=== PATIENT | male | born 1955 | race Caucasian/White ===

== ENCOUNTER 2019-03-10 11:53 | Emergency (ER) | payer OTHER ==
[~2019-03-10] VITALS: Ht 167.6 cm; Wt 59.0 kg
[2019-03-10] MEDS ORDERED: LEVOTHYROXINE100 MC1 PO (12:06)
[2019-03-10 12:49] VITALS: BP 125/81
[2019-03-10] MEDS ORDERED: NORCO 5-325 TA1 EAC1 PO (13:00)
== END 2019-03-10 13:20 | disposition home or self-care (01) ==
LOC: ER 11:53
DX: T20.17XA Burn of first degree of neck, initial encounter (principal); X08.8XXA Exposure to other specified smoke, fire and flames, initial encounter; Y93.89 Activity, other specified; Y92.89 Other specified places as the place of occurrence of the external cause; Y99.8 Other external cause status